=== PATIENT | male | born 1955 | race Caucasian/White ===

== ENCOUNTER 2023-11-22 22:27 | Emergency (ER) | payer MEDICARE, SELFPAY ==
[2023-11-22 22:33] VITALS: BP 176/77; PULSE 84; RESP 18; TEMP 36.4; O2SAT 99; BMI 29.8
--- NOTE | 2023-11-23 01:42 | ED.GENADULT ---
HPI - General Adult General Chief complaint: Dental/Oral Stated complaint: tooth pain Time Seen by Provider: 11/23/23 00:10 Source: patient Mode of arrival: Ambulatory History of Present Illness HPI narrative: 67-year-old gentleman presents with dental pain getting worse over the last 48 hours. She states usually if he is simply take some aspirin it goes away. This time it seems to be getting worse he is having some left-sided submandibular adenopathy. No obvious drainage. He has only a few lower teeth left many have broken off at the gums and then have healed over. He describes no fevers or chills. Related Data Previous Rx's Medication Instructions Recorded amoxicillin 500 mg capsule 500 mg PO TID #21 caps 11/23/23 Allergies Allergy/AdvReac Type Severity Reaction Status Date / Time No Known Drug Allergies Allergy Verified 11/22/23 22:33 Review of Systems Review of Systems Narrative: Pertinent positive and negative findings as per HPI Patient History Medical History (Updated 11/23/23 @ 02:26 by Laurie Pop MD) Hypertension Coronary artery disease Social History Smoking Status: Current every day smoker Smoking Status: Current every day smoker Substance Use Type: does not use Exam Initial Vital Signs Initial Vital Signs: Vital Signs Temperature 97.5 F L 11/22/23 22:33 Pulse Rate 84 11/22/23 22:33 Respiratory Rate 18 11/22/23 22:33 Blood Pressure 176/77 H 11/22/23 22:33 Pulse Oximetry 99 11/22/23 22:33 Oxygen Delivery Method Room Air 11/22/23 22:33 General: Alert, complaining of significant left-sided lower jaw dental pain with teeth that are broken off at the gumline Neck, minor cervical adenopathy, no evidence of Sim's angina Respiratory: Able to speak in full sentences, no obvious respiratory distress Skin: No obvious rashes, warm and dry Neurologic: Grossly intact no obvious asymmetries or abnormalities Psych: appropriate insight and affect, cooperative Course Vital Signs Vital signs: Vital Signs - 8 hr 11/22/23 22:33 Temperature 97.5 F L Pulse Rate 84 Respiratory Rate 18 Blood Pressure 176/77 H Pulse Oximetry 99 Oxygen Delivery Method Room Air Medical Decision Making [facility] Narrative Medical decision making narrative: 67-year-old gentleman presents with dental pain Poor overall oral health with a few lower front teeth still in place but most are broken off at the root. No fevers or chills. He does have known coronary disease but has not had any heart issues for at least 5 years Patient currently lives in 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 He is aware that he needs to have the rest of his teeth pulled and be fitted for dentures. Minor tenderness along along the left posterior jaw line, no obvious infection or abscess or drainage. He does have some mild left-sided cervical adenopathy. Discussion: 67-year-old gentleman with left lower jaw dental pain, minimal teeth left. Suspect this is in fact a dental infection. He is placed on amoxicillin. He has given a prepack of Percocet to use for pain over the next 24 hours. Suggest that he follow up with a dentist when he is able to return home. He is safe for discharge Discharge Plan Departure Patient Disposition: Home Clinical Impression: Toothache, Dental caries Instructions: DI for Dental Pain Activity Restrictions/Additional Instructions: Thank you for coming in tonight I am sorry that you are suffering with this dental pain. I have given you a couple of tablets of the Percocet that can use for severe pain. It is okay to take 2 aspirin with 1 Percocet. Given your blood thinner, I would not recommend ibuprofen at this time I have given you the 1st dose of amoxicillin to help with infection, and [email or web address] free to picker tender helper. If you find that you are getting worse or develop any new symptoms, please feel free to return to the emergency department for further evaluation. Prescriptions: New amoxicillin 500 mg capsule 500 mg PO TID Qty: 21 0RF Stand Alone Forms: Patient Portal/API
[2023-11-23] MEDS: OXYCODONE/ACETAMINOPHEN 5/325 TABLET 1 TAB PO (02:00)
[2023-11-23] MEDS: AMOXICILLIN 250 MG CAPSULE 500 MG PO (02:01)
[2023-11-23] MEDS: OXYCODONE/APAP 5/325 PREPACK 1 BOTTLE MISC (02:03)
[2023-11-23 02:26] VITALS: BP 135/71; PULSE 108; RESP 16; O2SAT 95
== END 2023-11-23 02:28 | disposition home or self-care (01) ==
PROVIDERS: Emergency Provider Emergency Medicine
DX: K02.9 Dental caries, unspecified (principal)
CPT/HCPCS: 99283